=== PATIENT | male | born 1995 | race Hispanic/Latino ===

== ENCOUNTER 2018-11-27 13:24 | Emergency (ER) | payer MEDICAID, OTHER ==
[2018-11-27] MEDS ORDERED: CEFTRIAXONE SODIUM 500 MG VIAL ONE (13:50)
[2018-11-27] MEDS ORDERED: LIDOCAINE HCL-MPF 1% 2ML VIAL ONE (13:50)
[2018-11-27] MEDS ORDERED: AZITHROMYCIN 250 MG TABLET PO ONE (13:50)
== END 2018-11-27 14:20 | disposition home or self-care (01) ==
LOC: EDH 13:24
DX: N34.1 Nonspecific urethritis (principal); Z72.0 Tobacco use
CPT/HCPCS: 96372; 99283; J0696; J3490